=== PATIENT | male | born 1950 | race Caucasian/White ===

== ENCOUNTER → 2017-06-07 | Outpatient (CLI) | payer OTHER ==
[~2017-06-07] MED LIST: CALC-51 PO; CHOL1000 PO; MULT-506 PO; OPTIRAY 320 IV PRN
--- NOTE | 2017-06-07 08:41 | DIAGNOSTIC IMAGING REPORT ---
CT OF THE ABDOMEN AND PELVIS WITH CONTRAST CLINICAL HISTORY: Prostate cancer. COMPARISON STUDY: Whole body bone scan May 16, 2017. TECHNIQUE: Following IV administration of 93 mL of Optiray-320, axial images of the abdomen and pelvis were obtained from the lung bases to the proximal femurs. Images were reviewed in the axial, sagittal, and coronal planes. IV contrast was administered without complication. A dose lowering technique was utilized adhering to the principles of ALARA. Oral contrast was administered. CT DOSE: 415.59 mGy.cm FINDINGS: Lung bases are clear. Left hepatic lobe atrophy is noted. There are no suspicious hepatic lesions. The spleen, adrenal glands, kidneys and pancreas are unremarkable. There are several splenules. No abdominal or pelvic lymphadenopathy is present. Caliber and wall thickness of small and large bowel are normal. No suspicious osseous lesions are identified. A bone island within the right femoral head is noted. Note is made of a 2.6 cm irregular subcutaneous density of the left buttock which may be enhancing. IMPRESSION: 1. No evidence for metastatic disease within the abdomen or pelvis. 2. 2.6 cm irregular subcutaneous density of the left buttock which may be enhancing. There is nonspecific although not suggestive of metastatic disease. Differential considerations include a small contusion or injection site. A soft tissue mass is within the differential. Correlation with previous imaging studies, if available, is recommended. In the absence of prior studies, a follow-up CT in 6 months to ensure stability is recommended. Electronically signed by: Jacob Perez M.D. 06/07/2017 8:40 AM Dictated Date/Time: 06/07/2017 8:18 AM
== END | disposition home or self-care (01) ==
LOC: C.CTS 07:56
PROVIDERS: ATTEND Physician Assistant Medical
DX: C61 Malignant neoplasm of prostate (principal)

== ENCOUNTER → 2017-06-26 | Outpatient (CLI) | payer OTHER ==
[~2017-06-26] MED LIST changes: +GADAVIST IV PRN; -OPTIRAY 320 IV PRN
--- NOTE | 2017-06-26 15:13 | DIAGNOSTIC IMAGING REPORT ---
PROSTATE MRI COMBO CLINICAL HISTORY: 67-year-old male with prostate cancer. TECHNIQUE: Multisequence, multiplanar MR imaging of the prostate was performed before and after the intravenous administration of 7.5 cc of Gadavist. Additional postprocessing was performed on a separate [employer] workstation by the radiologist for 3-D volumetric segmentation of the prostate and contouring of region(s) of interest (VALARIE) for targeting. COMPARISON: CT of the abdomen and pelvis June 07, 2017. FINDINGS: Prostate: The size of the prostate gland is within normal limits. No T2 hypointense lesions are identified within the prostate gland. There are no foci of restricted diffusion to suggest malignancy within the prostate gland. The periprosthetic soft tissues are within normal limits. A suspected bone island within the right femoral head is noted. Seminal vesicles normal. Bladder: Normal. Bowel: Visualized portion of the rectum normal. Peritoneum: No free fluid in the pelvis. Lymph nodes: No lymphadenopathy in the visualized portion of the pelvis. Vasculature: Iliac vessels patent. Abdominal wall: Normal. Osseous structures: Normal bone marrow signal intensity. IMPRESSION: No suspicious lesions within the prostate gland. By MRI, this represents a PI-RADS 1 study. Clinically significant cancer is highly unlikely to be present. The biopsy-proven cancer likely responded to hormone therapy. Electronically signed by: Jacob Perez M.D. 06/26/2017 3:11 PM Dictated Date/Time: 06/26/2017 2:22 PM
== END | disposition home or self-care (01) ==
LOC: C.MRIBC 11:46
PROVIDERS: ATTEND Physician Assistant Medical
DX: C61 Malignant neoplasm of prostate (principal)